=== PATIENT | male | born 1970 ===

== ENCOUNTER 2025-01-21 05:00 | Day surgery (SDC) | payer OTHER ==
[2025-01-16 13:23] VITALS: BP 130/70
[2025-01-17 07:19] LABS: HEMATOCRIT 37.4 % (39.0-48.0); HEMOGLOBIN 12.6 g/dL (13-16.00); MEAN CELL VOLUME 87.7 fL (80.0-100.00); MEAN CORPUSCULAR HEMOGLOBIN 29.5 pg (27.00-32.0); MEAN CORPUSCULAR HGB CONC 33.7 g/dl (32.0-36.0); PLATELET COUNT 206 K/uL (150-450); RED BLOOD COUNT 4.26 M/uL (4.00-6.00); RED CELL DISTRIBUTION WIDTH 14.4 % (11.5-14.5)
[2025-01-17 07:50] LABS: PARTIAL THROMBOPLASTIN TIME 33.8 SECONDS (22.0-34.0); PROTHROMBIN TIME 10.9 SECONDS (9.0-11.5)
[2025-01-17 07:59] LABS: ALBUMIN 3.7 gm/dL (3.4-5.0); BILIRUBIN TOTAL 0.48 mg/dL (0.3-1.2); CALCIUM 9.7 mg/dL (8.5-10.1); CREATININE SERUM 0.74 mg/dL (0.70-1.30); GFR 111.07; GLOBULINA 3.9 G/DL (2.4-3.5); POTASSIUM 4.28 mEq/L (3.5-5.1); TOTAL PROTEIN 7.6 gm/dL (6.4-8.2)
[~2025-01-21] VITALS: Ht 167.6 cm; Wt 115.2 kg
[~2025-01-21 05:00] MED LIST: AVAPRO150 MG PO; DILTIAZEM ER360 M1 PO; GLIPIZIDE XL5 MG PO; HYDROCHLOROTHIA25 MG PO; METFORMIN HCL1000 M2 PO; PROSCAR5 MG PO; TOPROL XL100 M1 PO; UROXATRAL10 MG PO
== END 2025-01-21 12:10 | disposition home or self-care (01) ==
LOC: CIR.AMB 05:00
PROVIDERS: ATTEND Internal Medicine
DX: D37.8 Neoplasm of uncertain behavior of other specified digestive organs (principal); K86.2 Cyst of pancreas; R93.3 Abnormal findings on diagnostic imaging of other parts of digestive tract